=== PATIENT | male | born 1960 | race Two or more races ===

== ENCOUNTER 2020-03-31 07:00 | Day surgery (SDC) | payer OTHER ==
[~2020-03-31 07:00] MED LIST: INTESTINEX1 CA1 PO; OXYC1TAB9 PO
== END 2020-03-31 10:35 | disposition home or self-care (01) ==
LOC: AMB-ENDOS 07:00
PROVIDERS: ATTEND Surgery
DX: K63.5 Polyp of colon (principal); Z20.828 Contact with and (suspected) exposure to other viral communicable diseases